=== PATIENT | female | born 1970 | race Caucasian/White ===

== ENCOUNTER 2017-01-27 05:20 | Inpatient (IN) | payer BC ==
[2017-01-26 10:17] VITALS: BMI 23.1
[2017-01-27] VITALS (23 sets, daily range): BP systolic 90–121; BP diastolic 45–64; PULSE 62–104; RESP 10–20; Ht 167.6 cm; Wt 64.3 kg
[~2017-01-27] VITALS: Ht 167.6 cm; Wt 64.3 kg
[~2017-01-27 05:20] MED LIST: HYDR-906 PO
[2017-01-27] MEDS ORDERED: LACTATED RINGER'S 1,000 ML IV* SCH (06:00)
[2017-01-27] MEDS ORDERED: CEFAZOLIN 2 GM/50 ML (PMX) 50 ML IVPB SCH (06:00)
[2017-01-27] MEDS ORDERED: BISACODYL 10 MG SUPP PR PRN (07:00)
[2017-01-27] MEDS ORDERED: AL HYDROX/MG HYDROX/SIMETH 30 ML CUP PO PRN (07:00)
[2017-01-27] MEDS ORDERED: HYDROmorphONE 0.2 MG/ML PCA IV SCH (07:00)
[2017-01-27] MEDS ORDERED: CEPASTAT LOZENGE MT PRN (07:00)
[2017-01-27] MEDS ORDERED: HYDROCODONE/APAP (10/325) TAB PO PRN (07:00)
[2017-01-27] MEDS: CEFAZOLIN 1 GM/50 ML (PMX) 50 ML IVPB SCH ×3 (07:00→22:59)
[2017-01-27] MEDS ORDERED: DIPHENHYDRAMINE 25 MG CAP PO PRN (07:00)
[2017-01-27] MEDS ORDERED: NALOXONE (0.4 MG/ML) INJ IV PRN (07:00)
[2017-01-27] MEDS ORDERED: HYDROmorphONE 1 MG/ML SYG IV PRN (07:00)
[2017-01-27] MEDS ORDERED: CYCLOBENZAPRINE 10 MG TAB PO PRN (07:00)
[2017-01-27] MEDS ORDERED: ZOLPIDEM 5 MG TAB PO PRN (07:00)
[2017-01-27] MEDS ORDERED: LIDOCAINE 2% (SDV) 5 ML INJ ONE (07:00)
[2017-01-27] MEDS ORDERED: DIPHENHYDRAMINE 50 MG INJ IV PRN ×2 (07:00→10:30)
[2017-01-27] MEDS ORDERED: ACETAMINOPHEN 325 MG TAB PO PRN (07:00)
[2017-01-27] MEDS ORDERED: THROMBIN 5000 UNIT VIAL ONE (07:04)
[2017-01-27] MEDS ORDERED: POLYMYXIN/BACITRACIN 1L IRRIG ONE (07:04)
[2017-01-27] MEDS ORDERED: BUPIVACAINE 0.25%/EPI (SDV) 30 ML INJ ONE (07:04)
[2017-01-27] MEDS ORDERED: SURGIFOAM POWDER 1 GM KIT ONE (07:04)
[2017-01-27] MEDS ORDERED: METOCLOPRAMIDE 10 MG INJ ONE (07:07)
[2017-01-27] MEDS ORDERED: MIDAZOLAM 1 MG/ML 2 ML INJ ONE (07:07)
[2017-01-27] MEDS ORDERED: ROCURONIUM 50 MG INJ ONE ×3 (07:12→08:53)
[2017-01-27] MEDS ORDERED: PROPOFOL 100 ML ONE (07:12)
[2017-01-27] MEDS ORDERED: DEXAMETHASONE 4 MG/ML 1 ML INJ ONE (07:12)
[2017-01-27] MEDS ORDERED: HYDROmorphONE 2 MG/ML SYG ONE (07:12)
[2017-01-27] MEDS ORDERED: ONDANSETRON 4 MG INJ ONE (07:12)
[2017-01-27] MEDS ORDERED: SCOPOLAMINE 1.5 MG PATCH ONE (07:18)
[2017-01-27] MEDS ORDERED: CEFAZOLIN 1 GM INJ ONE (07:21)
[2017-01-27] MEDS: DOCUSATE SODIUM 100 MG CAP PO SCH ×2 (09:00→21:04)
[2017-01-27] MEDS ORDERED: NEOSTIGMINE 3 MG/3 ML SYRINGE ONE (10:07)
[2017-01-27] MEDS ORDERED: GLYCOPYRROLATE 1 MG INJ ONE (10:07)
[2017-01-27] MEDS ORDERED: MEPERIDINE 25 MG INJ IV PRN (10:30)
[2017-01-27] MEDS ORDERED: METOCLOPRAMIDE 10 MG INJ IV PRN (10:30)
[2017-01-27] MEDS ORDERED: ONDANSETRON 4 MG INJ IV PRN (10:30)
[2017-01-27] MEDS ORDERED: HYDROmorphONE (0.2 MG/ML) 10ML SYG IV PRN ×2 (10:30)
[2017-01-27] MEDS: ONDANSETRON 4 MG INJ IV PRN (10:48)
[2017-01-27] MEDS: HYDROmorphONE (0.2 MG/ML) 10ML SYG IV PRN ×2 (10:48→10:59)
--- NOTE | 2017-01-27 11:22 | OPR ---
DATE OF OPERATION: 01/27/2017 PREOPERATIVE DIAGNOSES: 1. Previous left C5 to C6 posterior foraminotomy. 2. C4 to C5, C5 to C6, C6 to C7 disk disease with stenosis and radiculopathy. POSTOPERATIVE DIAGNOSES: 1. Previous left C5 to C6 posterior foraminotomy. 2. C4 to C5, C5 to C6, C6 to C7 disk disease with stenosis and radiculopathy. OPERATION PERFORMED: 1. Anterior cervical diskectomy and spinal cord decompression at C4 to C5, C5 to C6, C6 to C7. 2. Anterior cervical fusion at C4 to C5, C5 to C6, C6 to C7. 3. Placement of intervertebral biomechanical device at C4 to C5, C5 to C6, C6 to C7. 4. Anterior hardware placement at C4 to C5, C6 to C7. 5. Use of allograft. 6. Use of C-arm fluoroscopy with interpretation without radiologist present. 7. Intraoperative neuromonitoring (2 hours 30 minutes). IMPLANTS: 1. NeuroStructures Transom cervical plate with Cavetto cages and Fibergraft. PRIMARY SURGEON: Robby Guardado MD HAND INSPECTOR: Elena Zamudio PA-C NEED FOR FIELD ADMINISTRATIVE ASSISTANT: During this spinal surgical procedure, my diagnostic assistant was used to retrac t and protect the spinal nerves and dural sac. My diagnostic assistant also employed the suction catheters to evacuate blood from the surgical field to improve visualization of the neural structures. The john tant was medically necessary to facilitate the completion of the surgery in a safe and expeditious isidro. [facility] regulations, as well as hospital bylaws, preclude the use of non-license d health care personnel, such as operating room technicians, to perform these functions. FINDINGS: Neuromonitoring at the start of the case revealed left C5 amplitude down 30%, left C6 amp litude down 50%, bilateral C7 amplitudes down 30%. At the end of the case, nerve signals returned t o normal. The patient had significant collapse at all 3 levels with posterior osteophytes and steno sis. ESTIMATED BLOOD LOSS: 40 mL. DRAINS: One SPECIMENS: Disk was sent to pathology from all levels. COMPLICATIONS OF PROCEDURES: None. ANESTHESIOLOGIST: Dr. Brewster TYPE OF ANESTHESIA: General. INDICATIONS FOR PROCEDURE: This is a 46-year-old female who had previously undergone left C5 to C6 manager clinical applications foraminotomy elsewhere. She had continued radiculopathy, left greater than right, with multi level cervical disk disease. Given failure of nonoperative measures, I recommended proceeding with the above-mentioned surgery. Preoperatively, I discussed the risks, benefits, and alternatives. Edgard walsh understood and wished to proceed. DESCRIPTION OF PROCEDURE IN DETAIL: The patient was identified in the preoperative holding area, alo rodney, taken to the operating room, where she was successfully placed under general a nesthesia. Neuromonitoring leads were placed, sequential compressive devices were applied. Reid c atheter was introduced. Neuromonitoring was utilized during the procedure for 2 hours and 15 minute s to include SSEP, MEP, and EMG. This was performed by [employer]. Start time was 7:45 a.m., closure time was 10:15 a.m. The patient's neck was prepped and draped in usual sterile fashion. N cruz was extended. Towel rolls were placed behind the neck and between the scapular blades. I ident ified the incision site using the C-arm fluoroscope. I injected the skin with Marcaine and epinephr ine. A left-sided approach to the neck was made. The skin was incised. The platysma was incised i n line with the skin incision. I then identified an interval between the sternocleidomastoid and st rap muscles and identified the anterior spine. I then placed a bent spinal needle into what was fel t to be the C6 to C7 level and I took a lateral film to confirm the correct levels. Once this was c onfirmed, I subperiosteally dissected the longus colli musculature. Self-retaining retractors were placed. Anesthesiologist deflated and reinflated the cuff. Microscope was brought in. Radical dis kectomies were performed at C4 to C5, C5 to C6 and C6 to C7 using curettes, Kerrison punches and a p ituitary rongeur. High speed burs were used in order to remove a portion of the vertebral bodies gi kwabena the significant collapse to allow access to the posterior disk. I removed the posterior osteoph ytes and removed the posterior longitudinal ligament and decompressed the neural foramina bilaterall y at C4 to C5, C5 to C6, and C6 to C7. I provided the endplates, ____ various trials and chose the appropriate graft height. I then took the PEEK cage, within which I placed Fibergrafts and I impac maddie an intervertebral biomechanical device at C4 to C5, C5 to C6 and C6 to C7 to complete the fusion at all 3 levels. Once this was done, I placed the appropriate sized cervical plate anteriorly with 12 mm screws into each of the vertebral bodies at C4 to C5, C6 to C7 and O locked down the screws. I then took final AP and lateral images and I was happy with placement of the hardware and alignmen t of the spine. All nerve signals returned to normal. Microscope was taken off the field. Hemosta sis was achieved with bipolar cautery and Surgifoam. The wound was then copiously irrigated. I the n placed a deep drain and closed the platysma with a running 2-0 Vicryl stitch. I then closed subcu taneous tissue with a 3-0 Vicryl stitch. Dermabond and sterile dressings were then applied. The pa tient was then awakened from anesthesia, taken to recovery room in stable condition. Lap sponge and instrument counts were correct x2. There were no apparent complications during the procedure. The patient will be admitted to the orthopedic palm for routine postoperative care to include pain c ontrol, neurovascular checks, antibiotics, and physical therapy. Dictated By: ROBBY VILLARREAL/KIERRA Conf#: [id number] DID#: [id number] CC: ELENA ZAMUDIO;*EndCC*
--- NOTE | 2017-01-27 14:28 | CONS ---
DATE OF ADMISSION: 01/27/2017 DATE OF CONSULTATION: 01/27/2017 TYPE OF CONSULTATION: Postoperative medical Thank you very much for allowing me to evaluate this 46-year-old female who just underwent cervical spine surgery. HISTORICAL EVENTS: As you well know, this patient has just completed a surgery to treat her known l eft hand radicular pain and headaches. As you well know, she did undergo prior surgical interventio n in January 2016 with minimal relief. Despite the use of a "spinal injection," she remained symptoma tic and elected to proceed with surgery. Postoperatively, she notes mild neck discomfort, but denie s cough, wheezing, shortness of breath, nausea, vomiting, abdominal or chest pain. PAST MEDICAL HISTORY: 1. Fibrocystic breast disease. 2. History of migraine headaches. 3. Breast surgery enlargement. 4. Prior eye surgery. 5. Hernia repair and hysterectomy. PERSONAL HISTORY: She works in customer service. She is sedentary. Former smoker. . FAMILY HISTORY: Positive for ovarian cancer and stroke. MEDICATIONS: Prior to admission: 1. Vitamin B complex. 2. Vitamin C 500 units per day. 3. Vitamin D 1000 units per day. ALLERGIES: NONE. PHYSICAL EXAMINATION: GENERAL: Kamrar female in no acute distress. VITAL SIGNS: BP 122/80, pulse 70, respirations are 20. She was afebrile. EYES: Extraocular muscles were full. NOSE, MOUTH, AND THROAT: Normal. NECK: Could not be examined because collar was in place. LUNGS: Clear. HEART: Rhythm regular, no murmur. No third or fourth sound. ABDOMEN: Nontender. Liver and spleen were not palpable. No masses or tenderness were noted. EXTREMITIES: No edema. IMPRESSION: 1. Stable postoperative cervical spine surgery. 2. Will follow her daily for signs and symptoms of thromboembolic disease. Dictated By: SAUD HENRY/KIERRA Conf#: [id number] DID#: [id number]
[2017-01-27] MEDS: D5W-0.45 NACL + KCL 20 MEQ 1,000 ML IV SCH ×2 (14:51→16:53)
--- NOTE | 2017-01-27 14:56 | RADRPT ---
PROCEDURE: Intraoperative imaging of the cervical spine with fluoroscopy. CLINICAL INDICATION: Neck pain. Intraoperative. TECHNIQUE: 6 images of the cervical spine were obtained in the operating room with an image intens ifier. No radiologist was in attendance. 14.2 seconds of fluoroscopy time was used. COMPARISON: No prior study is available for comparison. FINDINGS: Images demonstrate anterior fusion with plate and screws at C4 - C5 - C6 - C7. IMPRESSION: 1. Intraoperative imaging of the cervical spine. 2. Anterior fusion at C4 - C5 - C6 - C7. RPTAT: QQ .Escobar El MD, MD Date Time Electronically viewed and signed by .Escobar El MD, on 01/27/2017 14:56 .R/
[2017-01-28] MEDS: D5W-0.45 NACL + KCL 20 MEQ 1,000 ML IV SCH ×2 (02:16→12:53)
[2017-01-28 05:23] LABS: ADD SCAN DIFF NO
[2017-01-28 05:51] LABS: POTASSIUM 4.3 mmol/L (3.5-5.1)
[2017-01-28 05:53] LABS: CREATININE 0.74 mg/dl (0.44-1.00)
[2017-01-28 05:54] LABS: CALCIUM 8.6 mg/dl (8.4-10.2)
[2017-01-28] MEDS ORDERED: PANTOPRAZOLE 40 MG INJ IV SCH (06:00)
[2017-01-28 07:03] LABS: BASOPHILS % 0.2 % (0.0-2.0); EOSINOPHILS # 0.1 10^3/ul (0.0-0.5); EOSINOPHILS % 0.5 % (0.0-7.0); HEMATOCRIT 34.2 % (37.0-47.0); HEMOGLOBIN 11.5 g/dl (12.0-16.0); LYMPHOCYTES # 2.3 10^3/ul (0.8-2.9); LYMPHOCYTES % 18.1 % (15.0-51.0); MEAN CORPUSCULAR HEMOGLOBIN 31.2 pg (29.0-33.0); MEAN CORPUSCULAR HGB CONC 33.6 g/dl (32.0-37.0); MEAN CORPUSCULAR VOLUME 92.7 fl (82.0-101.0); MEAN PLATELET VOLUME 10.2 fl (7.4-10.4); MONOCYTES % 7.9 % (0.0-11.0); NEUTROPHIL # 9.4 10^3/ul (1.6-7.5); NEUTROPHILS % 73.1 % (39.0-77.0); PLATELET COUNT 208 10^3/UL (140-415); RED BLOOD COUNT 3.69 10^6/ul (4.20-5.40); RED CELL DISTRIBUTION WIDTH 11.9 % (11.5-14.5); WHITE BLOOD COUNT 12.9 10^3/ul (4.8-10.8)
--- NOTE | 2017-01-28 08:00 | CONS ---
Date/Time of Note Date/Time of Note DATE: 01/28/17 TIME: 07:59 Assessment/Plan Assessment/Plan Additional Assessment/Plan 1. Doing well post op cx spine surgery 2. Labs rev Consultation Date/Type/Reason Admit Date/Time Jan 27, 2017 at 05:20 Initial Consult Date Detailed Summary ENT: other (mild neck pain and diff swallowing) Respiratory: No cough, No shortness of breath Gastrointestinal: No pain Genitourinary: other (rivas is in place) Exam/Review of Systems Vital Signs Vitals Vital Signs Date Time Temp Pulse Resp B/P Pulse Ox O2 Delivery O2 Flow Rate FiO2 01/28/17 05:50 18 01/27/17 23:42 98.7 58 98/57 98 01/27/17 14:45 Room Air 01/27/17 10:46 8.0 Intake and Output 01/27/17 01/27/17 01/28/17 15:00 23:00 07:00 Intake Total 2400 ml 1200 ml 1950 ml Output Total 225 ml 600 ml 4815 ml Balance 2175 ml 600 ml -2865 ml Exam Neck: No jvd (drain in place) Respiratory: clear to auscultation Cardiovascular: regular rate and rhythm Gastrointestinal: soft Extremities: No edema (and no calf tend bilat) Results Result Diagram: 01/28/17 0417 01/28/17 0417 Results 24 hrs Laboratory Tests Test 01/28/17 04:17 Anion Gap 12 Basophils # 0.0 Basophils % 0.2 Blood Urea Nitrogen 8 Calcium Level 8.6 Carbon Dioxide Level 29 Chloride Level 104 Creatinine 0.74 Eosinophils # 0.1 Eosinophils % 0.5 Glucose Level 107 Hematocrit 34.2 L Hemoglobin 11.5 L Lymphocytes # 2.3 Lymphocytes % 18.1 Magnesium Level 2.0 Mean Corpuscular Hemoglobin 31.2 Mean Corpuscular Hemoglobin Concent 33.6 Mean Corpuscular Volume 92.7 Mean Platelet Volume 10.2 Monocytes # 1.0 H Monocytes % 7.9 Neutrophils # 9.4 H Neutrophils % 73.1 Nucleated Red Blood Cells # 0.0 Nucleated Red Blood Cells % 0.0 Platelet Count 208 Potassium Level 4.3 Red Blood Count 3.69 L Red Cell Distribution Width 11.9 Sodium Level 141 White Blood Count 12.9 H Medications Medications Current Medications Lactated Ringer's 1,000 ml @ 0 mls/hr Q0M IV* Last administered on 01/27/17 06:19; Admin Dose 30 MLS/HR; Start 01/27/17 at 06:00 Potassium Chloride/Dextrose/ Sod Cl (D5-1/2ns + KCl 20 Meq) 1,000 ml @ 100 mls/ hr Q10H IV Last administered on 01/28/17 02:16; Admin Dose 100 MLS/HR; Start 01/27/17 at 06:53 Acetaminophen/ Hydrocodone Bitart (Taylor (10/325)) 1 tab Q4H PRN PO PAIN LEVEL 1-5; Start 01/27/17 at 07:00 Acetaminophen/ Hydrocodone Bitart (Taylor (10/325)) 2 tab Q4H PRN PO PAIN LEVEL 6-10; Start 01/27/17 at 07:00 Hydromorphone HCl (Dilaudid) 0.2 mg Q1H PRN IV BREAKTHROUGH PAIN; Start at 07:00 Zolpidem Tartrate (Ambien) 5 mg HS PRN PO INSOMNIA; Start 01/27/17 at 07:00 Ondansetron HCl (Zofran Inj) 4 mg Q6H PRN IV NAUSEA AND/OR VOMITING Last administered on 01/27/17 10:48; Admin Dose 4 MG; Start 01/27/17 at 07:00 Bisacodyl (Dulcolax Supp) 10 mg DAILY PRN MA CONSTIPATION; Start 01/27/17 at 07 :00 Docusate Sodium (Colace) 100 mg BID PO Last administered on 01/27/17 21:04; Admin Dose 100 MG; Start 01/27/17 at 09:00 Pantoprazole (Protonix Iv) 40 mg DAILY@06 IV Last administered on 01/28/17 05: 48; Admin Dose 40 MG; Start 01/28/17 at 06:00 Al Hydrox/Mg Hydrox/Simethicone (Mag-Al Plus) 15 ml Q6H PRN PO CONSTIPATION/ DYSPEPSIA; Start 01/27/17 at 07:00 Acetaminophen (Tylenol Tab) 650 mg Q4H PRN PO BENTLEY OR TEMP GREATER THAN 101.3F; Start 01/27/17 at 07:00 Cyclobenzaprine HCl (Flexeril) 10 mg TID PRN PO MUSCLE SPASMS; Start 01/27/17 at 07:00 Phenol (Cepastat Lozenge) 1 lozenge PRN PRN MT SORE THROAT; Start 01/27/17 at 07:00 Diphenhydramine HCl (Benadryl) 25 mg Q6H PRN PO ITCHING; Start 01/27/17 at 07: 00 Diphenhydramine HCl (Benadryl) 25 mg Q6H PRN IV ITCHING; Start 01/27/17 at 07: 00 Naloxone HCl (Narcan) 0.2 mg Q2M PRN IV RR 8 BREATHS/MIN OR LESS; Start at 07:00 Hydromorphone HCl (Dilaudid [employer]) [employer] to be started in PACU Q4PCA IV Last administered on 01/27/17t 10:58; Admin Dose 6 MG; Start 01/27/17 at 07:00 Miscellaneous Information 1. Hold [employer] at 1,000... [employer] IV ; Start 01/27/17 at 07: 00 SAUD LIMON MD Jan 28, 2017 08:00
[2017-01-28 08:04] VITALS: BP 113/54; RESP 16
[2017-01-28] MEDS: DOCUSATE SODIUM 100 MG CAP PO SCH (09:01)
[2017-01-28] MEDS: HYDROCODONE/APAP (10/325) TAB PO PRN ×2 (09:02→13:08)
[2017-01-28] MEDS: ONDANSETRON 4 MG INJ IV PRN (09:02)
--- NOTE | 2017-01-28 12:53 | PN ---
Date/Time of Note Date/Time of Note DATE: 01/28/17 TIME: 12:50 Assessment/Plan Lines/Catheters IV Catheter Type (from Nrsg): Saline Lock Reid in Place (from Nrsg): No Assessment/Plan Assessment/Plan s/p ACDF C4-7 - doing very well stable for D/C f/u arranged post op rx given may resume outpatient meds may shower tomorrow - do not soak or scrub incision site Subjective 24 Hr Interval Summary patient reports sore throat, pulling trapezial pain notes improvement in arm symptoms Exam/Review of Systems Vital Signs Vitals Vital Signs Date Time Temp Pulse Resp B/P Pulse Ox O2 Delivery O2 Flow Rate FiO2 01/28/17 10:00 18 01/28/17 08:04 98.5 72 113/54 100 01/27/17 14:45 Room Air 01/27/17 10:46 8.0 Intake and Output 01/27/17 01/27/17 01/28/17 15:00 23:00 07:00 Intake Total 2400 ml 1200 ml 1950 ml Output Total 225 ml 600 ml 4815 ml Balance 2175 ml 600 ml -2865 ml Exam Free Text/Dictation NVID drain output 25cc - drain D/C'ed incision D/C/I new dressing applied Results Result Diagram: 01/28/17 0417 01/28/17 0417 ISAMAR HANNAH PA-C Jan 28, 2017 12:52
--- NOTE | 2017-01-31 10:32 | DS ---
DATE OF ADMISSION: 01/27/2017 DATE OF DISCHARGE: 01/28/2017 ADMITTING DIAGNOSIS: Cervical stenosis. DISCHARGE DIAGNOSIS: Cervical stenosis. PROCEDURE: Patient was taken to the operating room on 01/27/2017and underwent ACDF. HOSPITAL COURSE: The patient was admitted to the orthopedic palm. After undergoing the above proce dure her postoperative course was uncomplicated. By postoperative day 1 she was deemed stable for d ischarge, with followup arranged with the undersigned. Dictated By: TRESSA VILLARREAL/KIERRA Conf#: [id number] DID#: [id number]
== END 2017-01-28 14:50 | disposition home or self-care (01) | DRG 473 ==
LOC: REC 05:20 → MS1 12:16
PROVIDERS: ADMIT Specialist; ATTEND Specialist
PROC: 0RT30ZZ Resection of Cervical Vertebral Disc, Open Approach (ICD-10-PCS; 2017-01-27)
PROC: 0RG20A0 Fusion of 2 or more Cervical Vertebral Joints with Interbody Fusion Device, Anterior Approach, Anterior Column, Open Approach (ICD-10-PCS; principal; 2017-01-27 07:00)
DX: M50.121 Cervical disc disorder at C4-C5 level with radiculopathy (principal); M48.02 Spinal stenosis, cervical region; Z87.891 Personal history of nicotine dependence; Z85.828 Personal history of other malignant neoplasm of skin
CPT/HCPCS: 72050; 80048; 83735; 85025; 87086; 97116; 97161; 97530; C1713; C9113; J0690; J1100; J1170; J2250; J2405; J2710; J2765; J3480; J7120